=== PATIENT | female | born 1955 | race Caucasian/White ===

== ENCOUNTER → 2017-08-10 | Outpatient (REF) ==
[~2017-08-10] MED LIST: ASCO500T20 PO; CALC-712 PO; FERR27TA PO; MULT-608 PO
--- NOTE | 2017-08-10 15:57 | Diagnostic Imaging Report ---
INDICATION: Back injury lifting heavy objects. TIME OF EXAMINATION: 03:35 p.m. FINDINGS: There is normal lumbar lordotic curvature. There is mild left convexity scoliotic curvature. The vertebral body heights are maintained. No acute compression fractures identified. There is degenerative disc disease at L2-L3 and L3-L4 levels with disc space narrowing and marginal spurring. IMPRESSION: Lumbar scoliosis and spondylosis. No acute bony abnormality is detected. Dictated by: Dictated on workstation # [id number]
== END | disposition home or self-care (01) ==
LOC: MERGE 14:30 → OCC 14:30
PROVIDERS: ATTEND Family Medicine
CPT/HCPCS: 72100

== ENCOUNTER → 2020-09-18 | Outpatient (CLI) | payer MEDICARE ==
--- NOTE | 2020-09-18 09:59 | Diagnostic Imaging Report ---
INDICATION: Abdominal pain. PROCEDURE: Ultrasound abdomen complete. TECHNIQUE: Multiple real-time grayscale images were obtained of the abdomen in various projections. FINDINGS: Liver is normal in size at 16.6 cm. No discrete liver mass is detected. The portal vein is patent and shows normal direction of flow. Gallbladder is without stones or sludge. No wall thickening or biliary duct dilatation is seen. Pancreas is unremarkable. Spleen is normal in size. Aorta is nonaneurysmal. IVC is patent. The right and left kidneys demonstrate some cortical thinning but no calculi or hydronephrosis is identified. There is no ascites. In addition, evaluation of the anterior abdominal wall in an area pain was performed with and without Valsalva maneuvers. No definite abdominal wall defect or hernia was detected. IMPRESSION: Essentially unremarkable abdominal ultrasound. Dictated by: Dictated on workstation # [id number]
== END ==
LOC: RAD 07:00
PROVIDERS: ATTEND Nurse Practitioner Family
DX: R10.9 Unspecified abdominal pain (principal)
CPT/HCPCS: 76700

== ENCOUNTER 2020-11-07 06:19 | Outpatient (CLI) | payer MEDICARE ==
[~2020-11-07] VITALS: Ht 162.6 cm; Wt 67.1 kg
== END 2020-11-07 11:01 | disposition home or self-care (01) ==
LOC: PREOP 06:19
PROVIDERS: ATTEND Surgery
DX: Z01.818 Encounter for other preprocedural examination (principal)

== ENCOUNTER 2020-11-14 06:04 | Day surgery (SDC) | payer MEDICARE ==
[~2020-11-14] VITALS: Ht 162 cm; Wt 67.1 kg
[2020-11-14] VITALS (11 sets, daily range): BP systolic 86–136; BP diastolic 38–81
[2020-11-14] MEDS ORDERED: WATER (STERILE) FOR INJECTION 10 ML ONE (06:13)
[2020-11-14] MEDS ORDERED: ceFAZolin INJECTION 1,000 MG ONE (06:13)
[2020-11-14] MEDS ORDERED: LACTATED RINGERS 1,000 ML IV PRN (06:15)
[2020-11-14] MEDS ORDERED: ceFAZolin INJECTION 1,000 MG in WATER (STERILE) FOR INJECTION 10 ML IV ONE (06:15)
[2020-11-14] MEDS ORDERED: NS IV 1000 ML 1,000 ML ONE (06:44)
[2020-11-14] MEDS: NS IV 1000 ML 1,000 ML IV PRN ×2 (07:20→09:44)
[2020-11-14] MEDS ORDERED: LIDOCAINE/EPI 1%-1:100,000 (XYLOCAINE) 20ML ONE (07:22)
[2020-11-14] MEDS ORDERED: fentaNYL INJ 100 MCG/2 ML AMP ONE (07:28)
[2020-11-14] MEDS ORDERED: GLYCOPYRROLATE 0.2 MG/ML (ROBINUL) 2 ML VIAL ONE (07:28)
[2020-11-14] MEDS ORDERED: proPOfol 200 MG/20 ML (DIPRIVAN) VIAL IV ONE (07:28)
[2020-11-14] MEDS ORDERED: NEOSTIGMINE 3 MG/3 ML VIAL ONE (07:28)
[2020-11-14] MEDS ORDERED: ROCURONIUM 10 MG/ML 5 ML SYRINGE IV ONE (07:28)
[2020-11-14] MEDS ORDERED: ONDANSETRON 4 MG/2 ML (SDV) Z0FRAN ONE ×2 (07:28→11:56)
[2020-11-14] MEDS ORDERED: LIDOCAINE PF 2% 5 ML (XYLOCAINE) VIAL ONE (07:28)
--- NOTE | 2020-11-14 07:57 | Progress Note-Pre Operative ---
Pre-Operative Progress Note H&P Reviewed The H&P was reviewed, patient examined and no changes noted. Date Seen by Provider: Nov 14, 2020 Time Seen by Provider: 07:44 Date H&P Reviewed: Nov 14, 2020 Time H&P Reviewed: 07:44 Pre-Operative Diagnosis: abdominal wall pain, abdominal wall hernia MITCHELL LUNA DO Nov 14, 2020 07:57
[2020-11-14] MEDS ORDERED: MIDAZOLAM 2 MG/2 ML (VERSED) VIAL ONE (08:01)
[2020-11-14] MEDS ORDERED: PHENYLEPHRINE 100 MCG/ML 10 ML (ANESTHESIA) SYR ONE (08:26)
[2020-11-14] MEDS ORDERED: SEVOFLURANE (ULTANE) 15 ML INHAL SOLN ONE (08:46)
--- NOTE | 2020-11-14 08:49 | Progress Note-Post Operative ---
Post-Operative Progess Note Surgeon (s)/Sap Bw Architect (s) Surgeon MITCHELL LUNA DO Sap Bw Architect: Dr. Hickey to assist in retraction dissection and closure. Pre-Operative Diagnosis abdominal wall pain, abdominal wall hernia Post-Operative Diagnosis adhesions right gutter, no hernia Procedure & Operative Findings Date of Procedure 11/14/20 Procedure Performed/Findings diagnostic laparoscopy Anesthesia Type general Estimated Blood Loss Estimated blood loss (mL): minimal Specimens/Packing Specimens Removed none MITCHELL LUNA DO Nov 14, 2020 08:49
[2020-11-14] MEDS ORDERED: HYDR15SO6 PO (08:51)
--- NOTE | 2020-11-14 08:53 | Discharge Inst-Simple/Standard ---
Discharge Inst-Standard Discharge Medications New, Converted or Re-Newed RX: Transmitted to Pharmacy Patient Instructions/Follow Up Plan of Care/Instructions/FU: 2 weeks Christina Activity as Tolerated: No Discharge Diet: Regular Diet Other Inst to Patient Follow up Appt: Make appointment for 2 week. Instructions: No lifting greater than 10 pounds. No strenuous activity. May shower in 24 hours, no tub bath or soaking. Use incentive spirometer at home as directed. No Smoking Skin/Wound Care: You have special glue over your incision that will fall off on it's own. Symptoms to Report: Appetite Changes, Extremity Discoloration, Numbness/Tingling, Swelling Increased, Bleeding Excessive, Eyesight Changes, Pain Increased, Urine Color Change, Constipation(Persistent), Fever over 101 degree F, Pain/Pressure in chest, Urinating Difficulty, Cough Up/Vomit Blood, Heart Beat Irreg/Pounding, Pain/Pressure in jaw, Vaginal Bleeding Increase, Cramps in feet or legs, Lightheadedness, Pain/Pressure in shoulder, Diarrhea(Persistent), Memory Changes Suddenly, Questions/Concerns, Weight gain consecutive days, Dizziness/Fainting, Nausea/Vomiting, Shortness of Breath, Weight gain over 2 pounds If questions or concerns contact your physician Or seek help at emergency department. MITCHELL LUNA DO Nov 14, 2020 08:53
[2020-11-14] MEDS ORDERED: HYDROmorphone 2 MG/ML VIAL (DILAUDID) IV ONE (09:15)
[2020-11-14] MEDS ORDERED: morphine INJ 10 MG/ML 1ML (SYR OR VIAL) IVP ONE (09:15)
[2020-11-14] MEDS: ONDANSETRON 4 MG/2 ML (SDV) Z0FRAN IVP PRN ×2 (10:14→11:59)
[2020-11-14] MEDS ORDERED: ONDANSETRON 4 MG/2 ML (SDV) Z0FRAN IVP ONE (12:00)
--- NOTE | 2020-11-14 13:13 | Anesthesia-General Post-Op ---
General Patient Condition Mental Status/LOC: Same as Preop Cardiovascular: Satisfactory Nausea/Vomiting: Absent Respiratory: Satisfactory Pain: Controlled Complications: Absent Post Op Complications Complications None Follow Up Care/Instructions Patient Instructions None needed. Anesthesia/Patient Condition Patient Condition Patient was doing well after the surgery but C/O nausea so an additional 4 mg of zofran was given in SDC. She had stable vital signs and no other apparent adverse anesthesia problems. ELIJAH GANDHI DO Nov 14, 2020 13:13
--- NOTE | 2020-11-14 16:15 | OPERATIVE REPORT ---
DATE OF SERVICE: 11/14/2020 PREOPERATIVE DIAGNOSIS: Abdominal wall pain, abdominal wall hernia. POSTOPERATIVE DIAGNOSIS: Adhesions, right gutter. No hernia. PROCEDURE: Diagnostic laparoscopy. SURGEON: Mitchell Vasquez DO ANATOMIC PATHOLOGY MANAGER: Dr. Hickey, assisted in retraction, dissection and closure. ANESTHESIA: General. ESTIMATED BLOOD LOSS: Minimal. COMPLICATIONS: None. INDICATIONS: The patient is a 65-year-old female with abdominal wall pain, was periumbilical. Questionable hernia on exam. She was discussed options. She wished to proceed with diagnostic laparoscopy. She understands risks and benefits and wishes to proceed. Consent was signed in the chart. DESCRIPTION OF PROCEDURE: The patient was taken to the operating suite. She was prepped and draped in sterile fashion. Surgical pause was performed. Local anesthetic was infiltrated in the left upper quadrant. A 11 blade scalpel was used to make a small skin incision. Cautery was used to dissect down to the fascia, divided the muscle bluntly and also bluntly through the posterior fascia. A 12 mm trocar was inserted and a pneumoperitoneum was achieved. The abdomen was inspected. Some adhesions in the right gutter present. A 5 mm trocar was placed in the right lower quadrant and one in the left lower quadrant. These were done under direct visualization. Hook cautery used to dissect the fat pad from the periumbilical region. No defect present. Small bowel had normal appearance. Colon had normal appearance. Liver and gallbladder had normal appearance. Stomach had normal appearance. No other pathological findings within the stomach. The trocars were then removed. The abdomen was then desufflated and the 12 mm trocar site fascia was then closed using 0 Vicryl in [id number] fashion. Skin was then closed using 4-0 Monocryl in subcuticular fashion. The abdomen was washed and dried and Skin Affix was placed over the incisions. The patient tolerated procedure well without any complications. She was taken to recovery room in stable condition. Job ID: [id number] DocumentID: [id number] Dictated Date: 11/14/2020 11:58:31 Chemical Compounder Date: 11/14/2020 16:14:41 Dictated By: MITCHELL VASQUEZ DO
== END 2020-11-14 12:30 ==
LOC: SDC 06:04
PROVIDERS: ATTEND Surgery
DX: K66.0 Peritoneal adhesions (postprocedural) (postinfection) (principal); K21.9 Gastro-esophageal reflux disease without esophagitis; Z86.69 Personal history of other diseases of the nervous system and sense organs; Z79.899 Other long term (current) drug therapy; Z79.2 Long term (current) use of antibiotics
CPT/HCPCS: 87081

== ENCOUNTER → 2022-03-24 | Outpatient (CLI) | payer MEDICARE ==
[~2022-03-24] MED LIST changes: +HYDR15SO6 PO
--- NOTE | 2022-03-24 09:56 | Diagnostic Imaging Report ---
INDICATION: 67-year-old postmenopausal female. COMPARISON: None FINDINGS: AP Spine L1-L4: [BMD (g/cm2): 0.948] [T-Score: -2.1] [Z-Score: -0.6] [BMD Previous: NA] [BMD % Change: NA] LT Hip Neck: [BMD (g/cm2): 0.744] [T-Score: -2.1] [Z-Score: -0.6] LT Hip Total: [BMD (g/cm2):0.773] [T-Score:-1.9] [Z-Score: -0.6] [BMD Previous: NA] [BMD % Change: NA] RT Hip Neck: [BMD (g/cm2):0.746] [T-Score:-2.1] [Z-Score:-0.6] RT Hip Total: [BMD (g/cm2):0.845] [T-score:-1.3] [Z-Score:0.0] [BMD Previous:NA] [BMD % Change:NA] World Health Organization criteria for BMD interpretation classify patients as Normal (T-score at or above -1.0), Osteopenic (T-score between -1.0 and -2.5) or Osteoporotic (T-score at or below -2.5). LIMITATIONS AND MODIFICATION: None. FRACTURE RISK (FRAX SCORE): The ten year probability of (%): Major Osteoporotic Fracture: [12.3] Hip Fracture: [2.3] IMPRESSION: 1. Osteopenia (Low bone mass). 2. Baseline examination. 3. See below National Osteoporosis Foundation guidelines on when to potentially initiate pharmacologic therapy. Based on the National Osteoporosis Foundation Guidelines, pharmacologic treatment should be initiated in any of the following, unless clinical conditions suggest otherwise: * Any patient with prior fragility fracture of the hip or vertebrae. A spine fracture indicates 5X risk for subsequent spine fracture and 2X risk for subsequent hip fracture. * Osteoporosis (T-score <-2.5). * Postmenopausal women and men age 50 and older with low bone mass/osteopenia (T-score between -1.0 and -2.5) by DXA and 10-year major osteoporotic fracture greater than 20% or a 10-year probability of hip fracture greater than 3%. These fracture risks are supplied above in the FRAX score, if applicable. * Clinician judgement and/or patient preferences may indicate treatment for people with 10-year fracture probabilities above or below these levels. Dictated by: Dictated on workstation # [id number]
--- NOTE | 2022-03-24 21:21 | Diagnostic Imaging Report ---
Indication: Routine screening. Comparison is made with prior mammogram 08/10/2013. 2-D and 3-D bilateral screening mammography was performed with CAD. Both breasts are heterogeneously dense, limiting the sensitivity of mammography. The parenchymal pattern is stable. No mass or malignant-appearing microcalcifications are seen. There are benign parenchymal and vascular calcifications bilaterally. Axillae are unremarkable. IMPRESSION: BI-RADS Category 2 No mammographic features suspicious for malignancy are identified. ACR BI-RADS Category 2: Benign findings. Result letter will be mailed to the patient. Note: At least 10% of breast cancer is not imaged by mammography. Dictated by: Dictated on workstation # [id number]
== END ==
LOC: RAD 08:30
PROVIDERS: ATTEND Family Medicine
DX: Z12.31 Encounter for screening mammogram for malignant neoplasm of breast (principal); M85.89 Other specified disorders of bone density and structure, multiple sites; Z78.0 Asymptomatic menopausal state
CPT/HCPCS: 77063; 77067; 77080